=== PATIENT | male | born 1980 | race Caucasian/White ===

== ENCOUNTER 2018-01-09 19:01 | Emergency (ER) | payer OTHER, SELFPAY ==
[2018-01-09 19:05] VITALS: BP 171/112; PULSE 83; RESP 14; TEMP 36.7; O2SAT 99; BMI 22.2
[2018-01-09 20:20] LABS: Add Manual Diff / Slide Review NO; Eosinophils Percent Auto 0.5 % (2-4); Hematocrit 44.2 % (41-53); Hemoglobin 15.5 g/dL (13.5-17.5); Lymphocytes Percent Auto 26.1 % (25-40); Mean Corpuscular HGB Conc 35.1 % (30-36); Mean Corpuscular Hemoglobin 33.1 PG (26-34); Mean Corpuscular Volume 94.6 fL (80-100); Monocytes Percent Auto 10.5 % (3-14); Neutrophils Absolute Auto 3900 /uL (3000-5900); Neutrophils Percent Auto 61.9 % (50-75); Platelet Count 327 X10^3/uL (150-400); Red Blood Cell Count 4.67 X10^6/uL (4.5-5.9); Red Cell Distribution Width 12.7 % (11.6-14.8); White Blood Cell Count 6.2 X10^3/uL (4.5-11.0)
[2018-01-09 20:27] LABS: Alanine Aminotransferase 31 IU/L (21-72); Albumin 4.9 g/dL (3.5-5.0); Albumin Globulin Ratio 1.6 (1.0-2.8); Alkaline Phosphatase 54 U/L (38-126); Aspartate Aminotransferase 30 IU/L (17-59); Bilirubin Total 0.6 mg/dL (0.2-1.3); Blood Urea Nitrogen 18 mg/dL (9-20); Calcium 9.9 mg/dL (8.4-10.2); Carbon Dioxide 28 mmol/L (22-32); Chloride 99 mmol/L (98-107); Estimated Glomerular Filt Rate > 60.0 mL/min (>60); Ethanol (ETOH) < 10 mg/dL; Globulin 3.1 g/dL (1.7-4.1); Glucose 107 mg/dL (70-100); HEMOLYSIS < 15 (0-50); Potassium 4.2 mmol/L (3.4-5.1); Sodium 140 mmol/L (137-145)
[2018-01-09 20:30] LABS: Urine Amphetamines Negative (Negative); Urine Barbiturates Negative (Negative); Urine Benzodiazepines Negative (Negative); Urine Cocaine Negative (Negative); Urine MDMA Negative (Negative); Urine Methadone Negative (Negative); Urine Methamphetamines Negative (Negative); Urine Morphine/Opi cutoff 2000 Negative (Negative); Urine Oxycodone Negative (Negative); Urine Phencyclidine Negative (Negative); Urine Tetrahydrocannabinol Negative (Negative); Urine Tricyclic Antidepressant Negative (Negative)
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
[2018-01-09 21:40] VITALS: BP 151/95; PULSE 86; RESP 16; TEMP 36.2
--- NOTE | 2018-01-10 00:43 | PC.NURSE ---
deirdrep completed patient interview. interviewing spouse now.
[2018-01-10 00:50] VITALS: BP 133/80; PULSE 82; RESP 16; O2SAT 98
[2018-01-10 02:48] VITALS: BP 128/78; PULSE 78; RESP 16; O2SAT 100
--- NOTE | 2018-01-10 03:26 | PC.NURSE ---
pt is coming to the door frequently and using call light frequently. speech is fast with agitated tone. pt remains directable and cooperative
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
== END 2018-01-10 03:49 ==
PROVIDERS: Emergency Provider Emergency Medicine
DX: F31.9 Bipolar disorder, unspecified (principal)
CPT/HCPCS: 36415; 80053; 80305; 80320; 81003; 85025; 99284